=== PATIENT | male | born 1955 | race Caucasian/White ===

== ENCOUNTER 2018-12-25 18:07 | Emergency (ER) | payer MEDICAID ==
[~2018-12-25] VITALS: Ht 177.8 cm; Wt 75.0 kg
[~2018-12-25 18:07] MED LIST: ALBU18HF IH; ALBU8.5H5 INH; CYCL15CA20 PO; CYCL5TAB PO; ENAL20TA PO; FAMO40TA4 PO; GABA-826 PO; HYDR-3241 PO; HYDR12.517 PO; HYDR25TA6 PO; IBUP-1222 PO; LISI-170 PO; METO25TA35 PO; OXYC30TA PO; TRAZ50TA66 PO
[2018-12-25 18:20] VITALS: BP 159/100
[2018-12-25 18:36] LABS: BASOPHILS # (AUTO) 0.02 x10^3/uL (0-0.1); BASOPHILS % (AUTO) 0 % (0-1); EOSINOPHILS # (AUTO) 0.12 x10^3/uL (0-0.4); EOSINOPHILS % (AUTO) 3 % (1-7); LYMPHOCYTES # (AUTO) 1.26 x10^3/uL (1-3.4); LYMPHOCYTES % (AUTO) 29 % (22-44); MD NO; MEAN CORPUSCULAR HEMOGLOBIN 33.8 pg (27.5-34.5); MEAN CORPUSCULAR HGB CONC 33.2 g/dL (33.2-36.2); MEAN CORPUSCULAR VOLUME 101.9 fL (81-97); MEAN PLATELET VOLUME 6.5 fL (7.4-10.4); MONOCYTES # (AUTO) 0.43 x10^3/uL (0.2-0.8); MONOCYTES % (AUTO) 10 % (2-9); NEUTROPHILS # (AUTO) 2.47 x10^3/uL (1.8-6.8); NEUTROPHILS % (AUTO) 58 % (42-75); PLATELET COUNT 380 x10^3/uL (130-400); RED BLOOD COUNT 4.53 x10^6/uL (4.38-5.82); RED CELL DISTRIBUTION WIDTH 13.9 % (9.4-14.8)
[2018-12-25 18:43] LABS: INTERNATIONAL NORMALIZED RATIO 0.84 (0.93-1.1); PROTHROMBIN TIME 8.9 Seconds (9.6-11.5)
[2018-12-25 18:44] LABS: ANION GAP 11 mmol/L (5-15); CHLORIDE 110 mmol/L (98-107); CREATININE 1.19 mg/dL (0.7-1.3)
[2018-12-25 18:45] LABS: ALANINE AMINOTRANSFERASE 25 U/L (12-78); ALBUMIN 3.2 g/dL (3.4-5.0)
[2018-12-25 18:47] LABS: ALKALINE PHOSPHATASE 187 U/L (45-117); TOTAL PROTEIN 6.9 g/dL (6.4-8.2)
[2018-12-25 18:48] LABS: BILIRUBIN,TOTAL < 0.1 mg/dL (0.2-1.0)
[2018-12-25] MEDS ORDERED: MORPHINE SULFATE 4 MG/ML, 1ML IVPush PRN (19:00)
[2018-12-25] MEDS ORDERED: SODIUM CHLORIDE FLUSH 10ML SYR IVF ONE (19:00)
[2018-12-25] MEDS ORDERED: ONDANSETRON 2MG/ML, 2ML IVPush ONE (19:00)
[2018-12-25] MEDS ORDERED: ONDANSETRON 2MG/ML, 2ML ONE (19:08)
[2018-12-25] MEDS ORDERED: MORPHINE SULFATE 4 MG/ML, 1ML ONE (19:08)
--- NOTE | 2018-12-25 19:20 | NUR ---
MEDICATED FOR PAIN AND SLING PROVIDED LEFT ARM
--- NOTE | 2018-12-25 20:00 | NUR ---
STATES SOME IMPROVEMENT IN PAIN SINCE MEDICATED FOR SAME, 12/26. UOB AND GETTING DRESSED WITHOUT ASSISANCE. GIVEN DISCHARGE INSTRUCTIONS ABOUT CONCUSSION AND NOT DRINKING. LEFT WITH SLING IN PLACE LEFT ARM. AMBULATED TO DISCHARGE WINDOW WITHOUT ASSISTANCE, STEADY GAIT.
== END 2018-12-25 20:05 | disposition home or self-care (01) ==
LOC: ED 19:12
DX: S06.0X0A Concussion without loss of consciousness, initial encounter (principal); M25.512 Pain in left shoulder; F17.200 Nicotine dependence, unspecified, uncomplicated; F10.20 Alcohol dependence, uncomplicated; I10 Essential (primary) hypertension; V19.9XXA Pedal cyclist (driver) (passenger) injured in unspecified traffic accident, initial encounter; Y93.55 Activity, bike riding; Y92.89 Other specified places as the place of occurrence of the external cause; Y99.8 Other external cause status
CPT/HCPCS: 36415; 70450; 71045; 72190; 73030; 74176; 80053; 80307; 85025; 85610; 85730; 96374; 96375; 99284; J2270; J2405

== ENCOUNTER 2019-09-02 12:59 | Emergency (ER) | payer MEDICAID ==
[~2019-09-02] VITALS: Ht 177.8 cm; Wt 73.1 kg
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
[2019-09-02 14:22] VITALS: BP 112/57
--- NOTE | 2019-09-02 14:24 | NUR ---
PT RESTING ON GURNEY. QUINONES
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
--- NOTE | 2019-09-02 14:50 | NUR ---
PT FOUND [facility]. "NOW I'M HAPPY".
== END 2019-09-02 14:56 | disposition home or self-care (01) ==
LOC: ED 14:50
DX: F10.229 Alcohol dependence with intoxication, unspecified (principal); I10 Essential (primary) hypertension; F17.200 Nicotine dependence, unspecified, uncomplicated; Y90.0 Blood alcohol level of less than 20 mg/100 ml
CPT/HCPCS: 71045; 99283

== ENCOUNTER 2019-11-01 20:07 | Emergency (ER) | payer MEDICAID ==
[~2019-11-01] VITALS: Ht 177.8 cm; Wt 77.3 kg
--- NOTE | 2019-11-01 21:17 | NUR ---
PT RESTING ON GURNEY WITH EYES CLOSED, RESPIRATIONS EVEN AND NONLABORED, CALL LIGHT WITHIN REACH, ALL SAFETY MEASURES IN PLACE, ALL MONITORING IN PLACE.
[2019-11-01 22:05] VITALS: BP 169/93
--- NOTE | 2019-11-01 22:12 | NUR ---
ATTEMPTED TO AMBULATE PT AT THIS TIME. PT UNABLE TO AMBUALTE WITH STEADY GAIT. PT PROVIDED WATER.
--- NOTE | 2019-11-01 22:47 | NUR ---
PT UNABLE TO AMBULATE WITH STEADY GAIT AT THIS TIME.
--- NOTE | 2019-11-01 23:38 | NUR ---
PT ABLE TO AMBULATE WITH STEADY GAIT.
== END 2019-11-02 00:01 ==
LOC: ED 23:55
DX: S09.90XA Unspecified injury of head, initial encounter (principal); F10.229 Alcohol dependence with intoxication, unspecified; I10 Essential (primary) hypertension; R07.81 Pleurodynia; Z72.9 Problem related to lifestyle, unspecified; Y90.0 Blood alcohol level of less than 20 mg/100 ml; V29.9XXA Motorcycle rider (driver) (passenger) injured in unspecified traffic accident, initial encounter; Y93.89 Activity, other specified; Y92.89 Other specified places as the place of occurrence of the external cause; Y99.8 Other external cause status
CPT/HCPCS: 70450; 71045; 99284

== ENCOUNTER 2020-08-23 16:29 | Emergency (ER) | payer MEDICAID ==
[~2020-08-23] VITALS: Ht 172.7 cm; Wt 70.0 kg
[~2020-08-23 16:29] MED LIST changes: -ENAL20TA PO; +ENAL20TA9 PO; -OXYC30TA PO; +OXYC30TA3 PO
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
[2020-08-23 17:13] LABS: BASOPHILS % (AUTO) 1 % (0-1); EOSINOPHILS % (AUTO) 2 % (1-7); LYMPHOCYTES % (AUTO) 16 % (22-44); MEAN CORPUSCULAR HEMOGLOBIN 35.7 pg (27.5-34.5); MEAN PLATELET VOLUME 6.6 fL (7.4-10.4); MONOCYTES % (AUTO) 10 % (2-9); NEUTROPHILS % (AUTO) 70 % (42-75); PLATELET COUNT 263 x10^3/uL (130-400); RED BLOOD COUNT 3.52 x10^6/uL (4.38-5.82); RED CELL DISTRIBUTION WIDTH 14.4 % (9.4-14.8)
[2020-08-23 17:18] LABS: MD NO
[2020-08-23 17:26] LABS: ALBUMIN 3.1 g/dL (3.4-5.0); ANION GAP 10 mmol/L (5-15); CALCIUM 9.1 mg/dL (8.5-10.1); CHLORIDE 105 mmol/L (98-107)
--- NOTE | 2020-08-23 17:55 | NUR ---
PT RESTING IN BED NO DISTRESS
[2020-08-23] MEDS ORDERED: BACITRACIN OINT 500U/GM, 15 GM TP PRN (18:00)
--- NOTE | 2020-08-23 19:00 | NUR ---
WOUND CLEANED AT BEDSIDE WITH IODINE.
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
[2020-08-23 20:44] VITALS: BP 92/59
--- NOTE | 2020-08-23 20:46 | NUR ---
PT IN BED NO DISTRESS
--- NOTE | 2020-08-23 20:56 | NUR ---
WANTS PT TO SOBER UP A BIT.
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
== END 2020-08-23 21:40 | disposition home or self-care (01) ==
LOC: ED 21:00
DX: S82.61XA Displaced fracture of lateral malleolus of right fibula, initial encounter for closed fracture (principal); T23.202A Burn of second degree of left hand, unspecified site, initial encounter; T31.0 Burns involving less than 10% of body surface; F10.229 Alcohol dependence with intoxication, unspecified; R06.02 Shortness of breath; R06.00 Dyspnea, unspecified; R05 Cough; I10 Essential (primary) hypertension; I25.10 Atherosclerotic heart disease of native coronary artery without angina pectoris; R00.9 Unspecified abnormalities of heart beat; F17.200 Nicotine dependence, unspecified, uncomplicated; Z72.9 Problem related to lifestyle, unspecified; Y90.0 Blood alcohol level of less than 20 mg/100 ml
CPT/HCPCS: 29515; 36415; 71045; 80048; 80320; 82040; 85025; 99285; G0480

== ENCOUNTER 2020-09-02 13:38 | Emergency (ER) | payer MEDICAID ==
[~2020-09-02] VITALS: Ht 177.8 cm; Wt 80.0 kg
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
--- NOTE | 2020-09-02 14:01 | NUR ---
ASSUMED CARE OF PATIENT. BEDSIDE REPORT GIVEN FROM DEVORAH KU
[2020-09-02] MEDS ORDERED: DIPH,PERTUSS(ACELL),TET VAC/PF 0.5 ML IM-VACC ONE ×2 (14:24→14:30)
[2020-09-02] MEDS ORDERED: NEOSPORIN OINT. PKT 1 PACKET ONE (14:52)
--- NOTE | 2020-09-02 15:01 | NUR ---
LAND ACQUISITION ANALYST IN ROOM DOING WOUND CARE. XRAY IN ROOM. VS STABLE. NO ACUTE DISTRESS NOTED. WILL CONTINUE TO MONITOR.
--- NOTE | 2020-09-02 15:09 | NUR ---
Dick soriano in [facility] - 09/02/20 at 1512 by JIM US IN ROOM
--- NOTE | 2020-09-02 16:03 | NUR ---
PT REPORTS HE WANTS TO LEAVE FOR A CIGARETTE. PT WALKING DOWN [place]. PT REDIRECTED BACK TO BED. VS STABLE. CALL LIGHT IN PLACE WILL CONTINUE TO MONITOR.
--- NOTE | 2020-09-02 16:19 | NUR ---
pt given food, okayed by SATHISH Jaffe. Waiting on walking boot. pt aware. vs stable. will continue to monitor.
[2020-09-02 17:45] VITALS: BP 118/78
--- NOTE | 2020-09-02 17:45 | NUR ---
WALKING BOOT GIVEN. PT TO FOLLOW UP WITH ORTHO. PT UNDERSTANDS DISCHARGE INSTRUCTIONS. NEW CLOTHES GIVEN. PT IS ABLE TO SAFELY GET SELF DRESSED AND AMBULATE AROUND ROOM. PT GIVEN A TAXI VOUCHER. VS STABLE. PT DISCHARGED PER SATHISH REDDING.
== END 2020-09-02 17:50 | disposition home or self-care (01) ==
LOC: ED 14:49
DX: S82.64XA Nondisplaced fracture of lateral malleolus of right fibula, initial encounter for closed fracture (principal); T23.152A Burn of first degree of left palm, initial encounter; T23.151A Burn of first degree of right palm, initial encounter; T23.162A Burn of first degree of back of left hand, initial encounter; T23.161A Burn of first degree of back of right hand, initial encounter; T31.0 Burns involving less than 10% of body surface; F10.220 Alcohol dependence with intoxication, uncomplicated; M25.512 Pain in left shoulder; R07.9 Chest pain, unspecified; I10 Essential (primary) hypertension; Z59.0 Homelessness; Y90.9 Presence of alcohol in blood, level not specified; W22.8XXA Striking against or struck by other objects, initial encounter; Y93.89 Activity, other specified; Y92.89 Other specified places as the place of occurrence of the external cause; Y99.8 Other external cause status
CPT/HCPCS: 71045; 90471; 90715; 99284

== ENCOUNTER 2020-11-01 11:49 | Emergency (ER) | payer MEDICAID ==
[~2020-11-01] VITALS: Ht 180.3 cm; Wt 65.0 kg
[2020-11-01 12:29] LABS: BASOPHILS % (AUTO) 1 % (0-1); EOSINOPHILS % (AUTO) 1 % (1-7); LYMPHOCYTES % (AUTO) 31 % (22-44); MEAN CORPUSCULAR HEMOGLOBIN 35.2 pg (27.5-34.5); MEAN PLATELET VOLUME 6.7 fL (7.4-10.4); MONOCYTES % (AUTO) 7 % (2-9); NEUTROPHILS % (AUTO) 59 % (42-75); PLATELET COUNT 368 x10^3/uL (130-400); RED BLOOD COUNT 4.37 x10^6/uL (4.38-5.82); RED CELL DISTRIBUTION WIDTH 13.4 % (9.4-14.8)
[2020-11-01 12:33] LABS: MD NO
[2020-11-01 12:41] LABS: ALBUMIN 3.4 g/dL (3.4-5.0); ANION GAP 9 mmol/L (5-15); CALCIUM 8.5 mg/dL (8.5-10.1); CHLORIDE 109 mmol/L (98-107); CREATININE 0.99 mg/dL (0.7-1.3)
[2020-11-01 12:47] LABS: TROPONIN I < 0.015 ng/mL (0.000-0.045)
[2020-11-01 13:16] VITALS: BP 140/87
== END 2020-11-01 13:26 | disposition home or self-care (01) ==
LOC: ED 13:00
DX: R07.89 Other chest pain (principal); F10.229 Alcohol dependence with intoxication, unspecified; I10 Essential (primary) hypertension; Y90.0 Blood alcohol level of less than 20 mg/100 ml
CPT/HCPCS: 36415; 71045; 80048; 80320; 82040; 84484; 85025; 93005; 99285; G0480

== ENCOUNTER 2020-11-26 17:21 | Emergency (ER) | payer MEDICAID, MEDICARE ==
[~2020-11-26] VITALS: Ht 175.3 cm; Wt 75.0 kg
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
--- NOTE | 2020-11-26 18:04 | NUR ---
ERMD NOTIFIED OF LUE DEFORMITY
[2020-11-26 18:07] LABS: BASOPHILS % (AUTO) 1 % (0-1); EOSINOPHILS % (AUTO) 3 % (1-7); LYMPHOCYTES % (AUTO) 36 % (22-44); MEAN CORPUSCULAR HEMOGLOBIN 35.2 pg (27.5-34.5); MEAN CORPUSCULAR HGB CONC 34.1 g/dL (33.2-36.2); MEAN PLATELET VOLUME 6.8 fL (7.4-10.4); MONOCYTES % (AUTO) 8 % (2-9); NEUTROPHILS % (AUTO) 52 % (42-75); PLATELET COUNT 280 x10^3/uL (130-400); RED BLOOD COUNT 3.83 x10^6/uL (4.38-5.82); RED CELL DISTRIBUTION WIDTH 13.5 % (9.4-14.8)
[2020-11-26 18:13] LABS: MD NO
[2020-11-26 18:17] LABS: ALBUMIN 3.3 g/dL (3.4-5.0); ANION GAP 8 mmol/L (5-15); CALCIUM 7.7 mg/dL (8.5-10.1); CHLORIDE 114 mmol/L (98-107)
--- NOTE | 2020-11-26 18:18 | NUR ---
Pt refusing Xray, States he doesnt know if he wants it. check back later
[2020-11-26 18:22] LABS: ALANINE AMINOTRANSFERASE 78 U/L (12-78); ALKALINE PHOSPHATASE 157 U/L (45-117); BILIRUBIN,TOTAL 0.2 mg/dL (0.2-1.0); CREATININE 0.91 mg/dL (0.7-1.3); TOTAL PROTEIN 6.7 g/dL (6.4-8.2)
--- NOTE | 2020-11-26 18:46 | NUR ---
REPORT RECEIVED FROM MARIBETH FAIRCHILD
--- NOTE | 2020-11-26 18:56 | NUR ---
PT STANDING IN ROOM AT EDGE OF BED STATING "I NEED TO GO, I NEED TO GO AND DRINK SOME WHISKEY. I DON'T NEED ANYTHING THAT YOU'RE GONNA GIVE ME HERE" PT AMBULATORY WITH STEADY GAIT. ERP AWARE. AWAITING D/C
[2020-11-26 19:07] VITALS: BP 135/72
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
== END 2020-11-26 19:10 | disposition home or self-care (01) ==
LOC: EDBD → MERGE 17:21 → ED 19:00
DX: R41.82 Altered mental status, unspecified (principal); R41.0 Disorientation, unspecified; F10.120 Alcohol abuse with intoxication, uncomplicated; G31.2 Degeneration of nervous system due to alcohol; Z72.9 Problem related to lifestyle, unspecified
CPT/HCPCS: 36415; 80053; 80320; 85025; 99283; G0480

== ENCOUNTER 2020-11-30 21:23 | Emergency (ER) | payer MEDICAID ==
[~2020-11-30] VITALS: Ht 172.7 cm; Wt 80.0 kg
[2020-11-30 21:26] VITALS: BP 100/64
== END 2020-11-30 21:41 | disposition left against medical advice (07) ==
LOC: ED 21:30
DX: R10.9 Unspecified abdominal pain (principal); Z53.21 Procedure and treatment not carried out due to patient leaving prior to being seen by health care provider
CPT/HCPCS: 99283

== ENCOUNTER 2021-01-25 13:37 | Emergency (ER) | payer MEDICAID ==
[~2021-01-25] VITALS: Ht 182.9 cm; Wt 89.0 kg
[2021-01-25 14:18] LABS: BASOPHILS % (AUTO) 2 % (0-1); EOSINOPHILS % (AUTO) 1 % (1-7); LYMPHOCYTES % (AUTO) 33 % (22-44); MEAN CORPUSCULAR HEMOGLOBIN 35.8 pg (27.5-34.5); MEAN CORPUSCULAR HGB CONC 34.6 g/dL (33.2-36.2); MEAN PLATELET VOLUME 6.7 fL (7.4-10.4); MONOCYTES % (AUTO) 11 % (2-9); NEUTROPHILS % (AUTO) 54 % (42-75); PLATELET COUNT 306 x10^3/uL (130-400); RED BLOOD COUNT 3.79 x10^6/uL (4.38-5.82); RED CELL DISTRIBUTION WIDTH 13.4 % (9.4-14.8)
[2021-01-25 14:30] LABS: ALBUMIN 3.4 g/dL (3.4-5.0); ANION GAP 10 mmol/L (5-15); CALCIUM 8.4 mg/dL (8.5-10.1); CHLORIDE 110 mmol/L (98-107); CREATININE 1.01 mg/dL (0.7-1.3)
[2021-01-25 17:19] VITALS: BP 163/103
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
== END 2021-01-25 18:02 | disposition home or self-care (01) ==
LOC: ED 13:58
DX: S00.93XA Contusion of unspecified part of head, initial encounter (principal); S40.011A Contusion of right shoulder, initial encounter; M54.2 Cervicalgia; F10.220 Alcohol dependence with intoxication, uncomplicated; I10 Essential (primary) hypertension; X58.XXXA Exposure to other specified factors, initial encounter; Y93.89 Activity, other specified; Y92.89 Other specified places as the place of occurrence of the external cause; Y99.8 Other external cause status; Y90.0 Blood alcohol level of less than 20 mg/100 ml
CPT/HCPCS: 36415; 70450; 72125; 80048; 80320; 82040; 85025; 99285; G0480

== ENCOUNTER 2021-01-26 20:35 | Emergency (ER) | payer MEDICAID ==
[~2021-01-26] VITALS: Ht 177.8 cm; Wt 75.0 kg
[2021-01-26 20:48] VITALS: BP 120/67
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
--- NOTE | 2021-01-26 21:14 | NUR ---
PT BACK INTO BED, ALL NEEDS IN REACH, CALL LIGHT IN REACH, NAD AT THIS TIME
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
== END 2021-01-26 21:29 | disposition left against medical advice (07) ==
LOC: ED 21:23
DX: F10.129 Alcohol abuse with intoxication, unspecified (principal); Z72.9 Problem related to lifestyle, unspecified; I10 Essential (primary) hypertension; Y90.0 Blood alcohol level of less than 20 mg/100 ml
CPT/HCPCS: 99283

== ENCOUNTER 2021-02-17 22:46 | Inpatient (IN) | payer MEDICAID ==
[~2021-02-17] VITALS: Ht 177.8 cm; Wt 89.6 kg
--- NOTE | 2021-02-17 22:53 | NUR ---
CODE NEURO [id number]
--- NOTE | 2021-02-17 23:09 | NUR ---
CANCEL CODE NEURO @[id number]
[2021-02-17] MEDS ORDERED: OMNIPAQUE 350 MG/ML, 100ML BOTTLE ONE (23:10)
[2021-02-17 23:31] LABS: ALANINE AMINOTRANSFERASE 115 U/L (12-78); ANION GAP 5 mmol/L (5-15); CALCIUM 8.3 mg/dL (8.5-10.1); CHLORIDE 110 mmol/L (98-107); CREATININE 0.96 mg/dL (0.7-1.3)
[2021-02-17 23:35] LABS: ALKALINE PHOSPHATASE 129 U/L (45-117); BILIRUBIN,TOTAL 0.3 mg/dL (0.2-1.0); TOTAL PROTEIN 6.1 g/dL (6.4-8.2)
[2021-02-18 00:01] LABS: BASOPHILS % (AUTO) 1 % (0-1); EOSINOPHILS % (AUTO) 3 % (1-7); LYMPHOCYTES % (AUTO) 40 % (22-44); MEAN CORPUSCULAR HEMOGLOBIN 36.5 pg (27.5-34.5); MEAN CORPUSCULAR HGB CONC 34.7 g/dL (33.2-36.2); MEAN PLATELET VOLUME 6.8 fL (7.4-10.4); MONOCYTES % (AUTO) 14 % (2-9); NEUTROPHILS % (AUTO) 42 % (42-75); PLATELET COUNT 170 x10^3/uL (130-400); RED BLOOD COUNT 3.06 x10^6/uL (4.38-5.82)
[2021-02-18 00:03] LABS: INTERNATIONAL NORMALIZED RATIO 0.94 (0.93-1.1); PROTHROMBIN TIME 10.1 Seconds (9.6-11.5)
--- NOTE | 2021-02-18 00:47 | NUR ---
Break RN: patient sleeping in [facility]. Respirations even and unlabored.
--- NOTE | 2021-02-18 01:16 | NUR ---
PATIENT PROVIDED WITH WARM BLANKET AND WATER. EXPLAINED NEED FOR URINE SAMPLE. URINAL PROVIDED.
--- NOTE | 2021-02-18 03:09 | NUR ---
FAILED ROAD TEST AT THIS TIME. PROVIDED PATIENT WITH WATER REQUESTED. VSS. BED IN LOW POSITION. CALL QUARLES IN REACH. WILL CONTINUE TO MONITOR.
[2021-02-18 04:17] LABS: AMPHETAMINE SCREEN, URINE Negative (Negative); BARBITURATE SCREEN, URINE Negative (Negative); BENZODIAZEPINE SCREEN, URINE Negative (Negative); CANNABINOID SCREEN, URINE Negative (Negative); COCAINE SCREEN, URINE Negative (Negative); METHADONE SCREEN, URINE Negative (Negative); OPIATE SCREEN, URINE Negative (Negative)
[2021-02-18] MEDS ORDERED: ACETAMINOPHEN 650 MG/20.3 ML UDC PO PRN (04:30)
[2021-02-18] MEDS ORDERED: ASPIRIN 325 MG TABLET EC PO ONE (04:30)
--- NOTE | 2021-02-18 04:34 | NUR ---
REPORT GIVEN TO DEVORAH MORRIS
[2021-02-18] MEDS ORDERED: ASPIRIN 325 MG TABLET EC ONE (04:35)
[2021-02-18 04:59] VITALS: BP 154/97
[2021-02-18] MEDS ORDERED: ENOXAPARIN 40 MG/0.4 ML SQ SCH (06:30)
[2021-02-18 07:20] LABS: CHOL/HDL RATIO 2.3
== END 2021-02-18 08:58 | disposition left against medical advice (07) | DRG 65 ==
LOC: ED 23:28 → SUATTDRO 02-18 04:05 → INTOOBSV 02-18 04:07 → EDIP 02-18 04:07 → OBSVTOIN 02-18 04:07 → EDIP 02-18 04:50 → 4WST 02-18 04:50
PROVIDERS: ADMIT Student in an Organized Health Care Education/Training Program; ATTEND Hospitalist
DX: I63.511 Cerebral infarction due to unspecified occlusion or stenosis of right middle cerebral artery (principal); G81.94 Hemiplegia, unspecified affecting left nondominant side; D53.9 Nutritional anemia, unspecified; E87.6 Hypokalemia; F17.200 Nicotine dependence, unspecified, uncomplicated; I10 Essential (primary) hypertension; R29.810 Facial weakness; R74.01 Elevation of levels of liver transaminase levels; Z53.29 Procedure and treatment not carried out because of patient's decision for other reasons; F10.129 Alcohol abuse with intoxication, unspecified; Z59.0 Homelessness; Z86.73 Personal history of transient ischemic attack (TIA), and cerebral infarction without residual deficits
CPT/HCPCS: 36415; 70450; 70496; 70498; 80047; 80053; 80061; 80307; 80320; 83036; 84443; 85025; 85610; 85730; 93005; G0378; Q9967; G0480

== ENCOUNTER 2021-03-08 15:58 | Emergency (ER) | payer MEDICAID ==
[~2021-03-08] VITALS: Ht 182.9 cm; Wt 85.0 kg
[2021-03-08 16:16] VITALS: BP 128/93
[2021-03-08] MEDS ORDERED: THIAMINE 100 MG/ML, 2ML IM ONE (16:30)
[2021-03-08] MEDS ORDERED: THIAMINE 100 MG/ML, 2ML ONE (16:39)
--- NOTE | 2021-03-08 16:50 | NUR ---
LABS SENT/THIAMINE GIVEN. NSR 90S.
[2021-03-08 16:54] LABS: BASOPHILS % (AUTO) 3 % (0-1); EOSINOPHILS % (AUTO) 2 % (1-7); LYMPHOCYTES % (AUTO) 32 % (22-44); MEAN CORPUSCULAR HEMOGLOBIN 36.6 pg (27.5-34.5); MEAN CORPUSCULAR HGB CONC 34.9 g/dL (33.2-36.2); MONOCYTES % (AUTO) 13 % (2-9); NEUTROPHILS % (AUTO) 50 % (42-75); PLATELET COUNT 133 x10^3/uL (130-400); RED BLOOD COUNT 3.46 x10^6/uL (4.38-5.82); RED CELL DISTRIBUTION WIDTH 14.2 % (9.4-14.8)
[2021-03-08 17:05] LABS: ALBUMIN 3.5 g/dL (3.4-5.0); ANION GAP 9 mmol/L (5-15); CALCIUM 8.6 mg/dL (8.5-10.1); CHLORIDE 111 mmol/L (98-107); CREATININE 0.96 mg/dL (0.7-1.3)
[2021-03-08 17:08] LABS: TROPONIN I < 0.015 ng/mL (0.000-0.045)
[2021-03-08] MEDS ORDERED: SODIUM CHLORIDE 0.9% 1,000ML IVBOLUS ONE (17:30)
[2021-03-08] MEDS ORDERED: SODIUM CHLORIDE FLUSH 10ML SYR IVF ONE (17:30)
--- NOTE | 2021-03-08 17:32 | NUR ---
DIET TRAY ORDERED, VSS.
--- NOTE | 2021-03-08 17:59 | NUR ---
FOOD TRAY DELIEVERED TO PT
== END 2021-03-08 18:29 | disposition left against medical advice (07) ==
LOC: ED 17:00
DX: F10.229 Alcohol dependence with intoxication, unspecified (principal); R07.89 Other chest pain; I45.19 Other right bundle-branch block; I10 Essential (primary) hypertension; Y90.0 Blood alcohol level of less than 20 mg/100 ml
CPT/HCPCS: 36415; 71045; 80048; 82040; 84484; 85025; 93005; 96360; 96372; 99285; J3411; J7030